=== PATIENT | female | born 1975 | race African-American/Black ===

== ENCOUNTER 2023-11-12 15:23 | Emergency (ER) | payer OTHER ==
[~2023-11-12] VITALS: Ht 165.1 cm; Wt 91.6 kg
[2023-11-12 15:28] VITALS: TEMP 98.2
[2023-11-12] MEDS ORDERED: PERCOCET 325 MG1 TA2 PO (17:35)
[2023-11-12] MEDS ORDERED: MOTRIN 800800 MG/TAB PO (17:35)
[2023-11-12] MEDS ORDERED: FLEXERIL 1010 MG/TAB PO (17:35)
[2023-11-12] MEDS ORDERED: Home oxyCODONE/Acetaminophen 5/325 MG #4 TAB/PACK PO ONE (17:45)
[2023-11-12 17:47] VITALS: BP 168/104; PULSE 74
== END 2023-11-12 17:50 | disposition home or self-care (01) ==
LOC: COL.ER 15:23
DX: S13.9XXA Sprain of joints and ligaments of unspecified parts of neck, initial encounter (principal); S33.5XXA Sprain of ligaments of lumbar spine, initial encounter; V89.2XXA Person injured in unspecified motor-vehicle accident, traffic, initial encounter; Y92.410 Unspecified street and highway as the place of occurrence of the external cause